=== PATIENT | female | born 1945 | race Asian ===

== ENCOUNTER 2017-02-16 13:33 | Outpatient (CLI) | payer MEDICARE, OTHER | END 2017-02-16 13:34 | disposition home or self-care (01) | DX: Z12.31 Encounter for screening mammogram for malignant neoplasm of breast (principal) ==

== ENCOUNTER 2017-04-04 10:42 | Outpatient (CLI) | payer MEDICARE, OTHER ==
--- NOTE | 2017-04-04 14:18 | XRAY Report ---
THREE VIEW LEFT KNEE: 04/04/2017 CLINICAL INDICATION: Left knee pain. FINDINGS: Standing AP, lateral, and sunrise views of the left knee demonstrate moderate osteoarthrit is. There is no evidence of fracture. No effusion is present. IMPRESSION: MODERATE OSTEOARTHRITIS. JOB #: [id number] EXT JOB #:[id number]
== END 2017-04-04 10:43 | disposition home or self-care (01) ==
LOC: DI 10:42
PROVIDERS: ATTEND Family Medicine
DX: M17.12 Unilateral primary osteoarthritis, left knee (principal)

== ENCOUNTER 2018-03-07 08:41 | Outpatient (CLI) | payer MEDICARE, OTHER ==
--- NOTE | 2018-03-10 12:23 | DEXA Report ---
DEXA SCAN: 03/07/2018 CLINICAL INDICATION: Osteoporosis. TECHNIQUE: Dual energy x-ray absorptiometry (DXA) was performed on a [employer] system. Regions measured are the AP spine, femoral neck, and, if needed, forearm. COMPARISON: None. In accordance with the International Society for Clinical Densitometry (ISCD) guidelines, data from previous exams may be reanalyzed using current recommendations and techniques. This is done to allow a more accurate basis for comparison with the current study. FINDINGS Data for the lumbar spine is as follows: REGION BMD (g/cm/cm) T-SCORE Z-SCORE L1 0.800 -2.7 -1.3 L2 0.847 -2.9 -1.5 L3 1.072 -1.1 0.4 L4 0.959 -2.0 -0.6 L1-L4 0.926 -2.1 -0.7 NOTE: All evaluable vertebrae are used for classification. The data for the hip is as follows: REGION BMD (g/cm/cm) T-SCORE Z-SCORE Neck 0.774 -1.9 -0.3 TOTAL 0.777 -1.8 -0.5 NOTE: The femoral neck or total proximal femur, whichever is lowest, is used for classification. IMPRESSION WHO CLASSIFICATION BASED ON THE INTERNATIONAL REFERENCE STANDARD IS OSTEOPENIA. FRACTURE RISK IS INCREASED. RECOMMENDATION: Patients with diagnosis of osteoporosis or osteopenia should have regular bone mineral density assessment. For those eligible for Medicare, routine testing is allowed once every 2 years. Testing frequency can be increased for patients who have rapidly progressing disease or for those who are receiving medical therapy to restore bone mass. COMMENT World Health Organization (WHO) definitions for osteoporosis and osteopenia: NORMAL BMD: T-score at 1.0 or higher, fracture risk is low. OSTEOPENIA BMD: T-score between 1.0 and -2.5, fracture risk is increased. OSTEOPOROSIS BMD: T-score at 2.5 or lower, fracture risk high. National Osteoporosis Foundation recommends: 1. Obtain adequate dietary calcium (at least 1200 mg per day) and vitamin D (400 -800 international units per day). 2. Participate, as appropriate, in regular weightbearing and muscle- strengthening exercise. 3. Avoid tobacco use and reduce alcohol and caffeine intake. 4. For more detailed information see the website at www.NOF.org. TD: 03/07/2018 13:33 MTDD
== END 2018-03-07 08:42 | disposition home or self-care (01) ==
LOC: DI 08:41
PROVIDERS: ATTEND Internal Medicine
DX: M81.0 Age-related osteoporosis without current pathological fracture (principal); M85.89 Other specified disorders of bone density and structure, multiple sites
CPT/HCPCS: 77080

== ENCOUNTER 2018-03-07 08:43 | Outpatient (CLI) | payer MEDICARE, OTHER ==
--- NOTE | 2018-03-08 15:21 | Mammography Report ---
DIGITAL SCREENING MAMMOGRAM: 03/07/2018 CLINICAL INDICATION: A 72-year-old for screening. COMPARISON: 02/2017, 08/2015, 05/2014, 10/2013, 09/2013, 07/2012, 01/2011, 11/2009. TECHNIQUE: Routine CC and MLO projections were obtained of the breasts. FINDINGS: The breasts demonstrate scattered fibroglandular densities bilaterally. Coarse and punctate, typically benign calcifications are present. No suspicious masses, clustered microcalcifications, or regions of architectural distortion are identified. IMPRESSION: BENIGN FINDINGS. RECOMMENDATION: Routine annual screening unless otherwise clinically indicated. BIRADS CATEGORY 2 benign findings. STANDARD QUALIFYING STATEMENTS: 1. This examination was reviewed with the aid of Computer-Aided Detection (CAD). 2. A negative or benign imaging report should not delay biopsy if clinically suspicious findings are present. Consider surgical consultation if warranted. More than 5% of cancers are not identified by imaging. 3. Dense breasts may obscure an underlying neoplasm. TD: 03/08/2018 13:01
== END 2018-03-07 08:44 | disposition home or self-care (01) ==
LOC: DI 08:43
PROVIDERS: ATTEND Internal Medicine
DX: Z12.31 Encounter for screening mammogram for malignant neoplasm of breast (principal)
CPT/HCPCS: 77067

== ENCOUNTER 2018-05-02 15:44 | Outpatient (CLI) | payer MEDICARE, OTHER ==
--- NOTE | 2018-05-03 16:13 | XRAY Report ---
Procedure Date: 05/02/2018 Accession Number: [id number] / [id number] Procedure: XR - Lumbar Spine 2 View CPT Code: FULL RESULT: EXAM: Lumbar Spine 2 View DATE: 05/02/2018 4:17 PM CLINICAL HISTORY: BACK PAIN COMPARISON: 08/28/2014. TECHNIQUE: 2 views. FINDINGS: Alignment: Normal. No spondylolisthesis or scoliosis. Bones: Five [id number] lumbar vertebral bodies are present. No fractures or bone lesions. Disks: No significant degenerative disc disease on plain radiography. Facets: There has been interval increase in facet arthropathy at L4 and L5 most pronounced at L5. Sacroiliac Joints: Unremarkable. Soft Tissues: Normal. The visualized bowel gas pattern is normal. IMPRESSION: Progression of facet arthropathy of the lower lumbar spine. RADIA
== END 2018-05-02 15:45 | disposition home or self-care (01) ==
LOC: DI 15:44
PROVIDERS: ATTEND Internal Medicine
DX: M54.9 Dorsalgia, unspecified (principal); M12.88 Other specific arthropathies, not elsewhere classified, other specified site
CPT/HCPCS: 72100

== ENCOUNTER 2018-09-14 22:18 | Emergency (ER) | payer MEDICARE, OTHER ==
[2018-09-14 22:46] LABS: BASOPHILS % (AUTO) 0.2 %; HGB - HEMOGLOBIN 15.1 g/dL (12.0-16.0); LYMPHOCYTES % (AUTO) 4.9 %; MEAN CORPUSCULAR HEMOGLOBIN 28.8 pg (27.0-31.0); MEAN CORPUSCULAR HGB CONC 33.6 g/dL (32.0-36.0); MEAN CORPUSCULAR VOLUME 85.9 fL (81.0-99.0); MEAN PLATELET VOLUME 6.2 fL (7.9-10.8); NEUTROPHILS % (AUTO) 88.9 %; PLT - PLATELET COUNT 503 10^3/uL (130-450); RED BLOOD COUNT 5.24 10^6/uL (4.20-5.40); RED CELL DISTRIBUTION WIDTH 12.4 % (12.0-15.0); WHITE BLOOD COUNT 20.8 x10^3/uL (4.8-10.8)
--- NOTE | 2018-09-14 22:49 | ED Physician Documentation ---
PD HPI ABD PAIN - Stated complaint Stated Complaint: ABD PX - Chief complaint Chief Complaint: Abd Pain - History obtained from History obtained from: Patient - History of Present Illness Timing - onset: Yesterday Timing - details: Gradual onset, Waxing and waning Pain level now: 5 Quality: Pain Location: Epigastric Radiation: Other (across upper abdomen) Improved by: Other (nothing) Worsened by: Other (no exacerbating factors) Associated symptoms: Nausea, Vomiting. No: Fever, Diarrhea, Constipation Similar symptoms before: Has not had sx before Recently seen: Not recently seen Review of Systems Constitutional: reports: Reviewed and negative Cardiac: reports: Reviewed and negative Respiratory: reports: Reviewed and negative GI: reports: Abdominal Pain, Nausea, Vomiting. denies: Constipation, Diarrhea : denies: Dysuria, Frequency Musculoskeletal: denies: Back pain PD PAST MEDICAL HISTORY - Past Medical History Past Medical History: Yes Cardiovascular: None, High cholesterol Respiratory: None Endocrine/Autoimmune: None GI: Colon polyps : None Musculoskeletal: None Derm: None - Past Surgical History General: Cholecystectomy, Colonoscopy - Present Medications Home Medications: Ambulatory Orders Medication Instructions Recorded Confirmed Alendronate [Fosamax] 70 mg PO Q7D 09/26/13 09/26/13 Calcium Carbonate/Vitamin D3 1 each PO 09/26/13 09/26/13 [Calcium + Vitamin D Tablet] Cholecalciferol (Vitamin D3) 2,000 unit PO 09/26/13 09/26/13 [Vitamin D] Multivitamin [Multi-Day Vitamins] 1 each PO 09/26/13 09/26/13 Simvastatin 20 mg PO 09/26/13 09/26/13 Esomeprazole Magnesium [Nexium] 20 mg PO DAILY #14 capsule. 09/15/18 oxyCODONE [Roxicodone] 5 mg PO Q6H PRN #10 tablet 09/15/18 - Allergies Allergies/Adverse Reactions: Allergies Allergy/AdvReac Type Severity Reaction Status Date / Time No Known Drug Allergies Allergy Verified 09/14/18 22:50 - Social History Does the pt smoke?: No Smoking Status: Never smoker Does the pt drink ETOH?: No Does the pt have substance abuse?: No - Immunizations Immunizations are current?: Yes PD ED PE NORMAL - Vitals Vital signs reviewed: Yes - General General: Alert and oriented X 3, No acute distress, Well developed/nourished - HEENT HEENT: Moist mucous membranes - Cardiac Cardiac: RRR, No murmur - Respiratory Respiratory: No respiratory distress, Clear bilaterally - Abdomen Abdomen: Normal bowel sounds, Soft, Non distended, Other (mild tenderness epigastrium without rebound or guarding) - Back Back: No CVA TTP - Derm Derm: Normal color, Warm and dry Results - Vitals Vitals: Vital Signs - 24 hr 09/14/18 09/14/18 09/15/18 22:26 23:38 00:50 Temperature 35.9 C L Heart Rate 90 78 51 L Respiratory 17 16 16 Rate Blood Pressure 136/88 H 148/98 H 141/92 H O2 Saturation 98 94 97 09/15/18 01:22 Temperature 36.6 C Heart Rate 79 Respiratory 14 Rate Blood Pressure 121/100 H O2 Saturation 98 Oxygen O2 Source Room air - Labs Labs: Microbiology 09/14/18 22:31 Urine Culture - Preliminary Urine,Clean Catch Laboratory Tests 09/14/18 09/14/18 09/14/18 22:31 22:37 22:37 WBC 20.8 H RBC 5.24 Hgb 15.1 Hct 45.0 MCV 85.9 MCH 28.8 MCHC 33.6 RDW 12.4 Plt Count 503 H MPV 6.2 L Neut # (Auto) Not Reportable Lymph # (Auto) Not Reportable [place] # (Auto) Not Reportable Eos # (Auto) Not Reportable Baso # (Auto) Not Reportable Absolute Nucleated RBC Not Reportable Total Counted 100 Band Neuts % (Manual) 1 Reactive Lymphs % (Man) 1 Abnorm Lymph % (Manual) 0 Nucleated RBC % Not Reportable Neutrophils # (Manual) 17.7 H Lymphocytes # (Manual) 2.1 Monocytes # (Manual) 1.0 Eosinophils # (Manual) 0.0 Basophils # (Manual) 0.0 Differential Comment MANUAL DIFFERENTIAL Platelet Estimate NORMAL (130-450,000) Platelet Morphology NORMAL APPEARANCE RBC Morph Micro Appear NORMAL APPEARANCE Sodium 133 L Potassium 3.5 Chloride 98 L Carbon Dioxide 25 Anion Gap 10.0 BUN 14 Creatinine 0.8 Estimated GFR (MDRD) 71 L Glucose 168 H Calcium 9.1 Total Bilirubin 1.0 AST 372 H ALT 311 H Alkaline Phosphatase 150 H Total Protein 8.0 Albumin 4.0 Globulin 4.0 Albumin/Globulin Ratio 1.0 Lipase 58 H Urine Color YELLOW Urine Clarity TURBID Urine pH 5.5 Ur Specific [place] >=1.030 H Urine Protein 30 H Urine Glucose (UA) 100 H Urine Ketones TRACE Urine Occult Blood TRACE-INTA Urine Nitrite POSITIVE H Urine Bilirubin NEGATIVE Urine Urobilinogen 1 (NORMAL) Ur Leukocyte Esterase NEGATIVE Urine RBC None Seen Urine WBC 0-3 Ur Squamous Epith Cells NONE SEEN Amorphous Sediment Marked Urine Bacteria Moderate H Ur Microscopic Review INDICATED Urine Culture Comments INDICATED - Rads (name of study) CT A/P Radiology: Prelim report reviewed, See rad report PD MEDICAL DECISION MAKING - ED course Complexity details: reviewed results, re-evaluated patient, considered differential, d/w patient ED course: On reevaluation, patient is in NAD and reports resolution of symptoms. In addition to significant leukocytosis, there are several abnormalities on CT and blood tests; despite this, patient is in NAD on reevaluation and reports resolution of symptoms. Admission to hospital not indicated at this time, but I emphasized to patient that she needs to have a low threshold for return to ED, and the importance of follow-up as soon as possible Departure - Departure Disposition: 01 Home, Self Care Clinical Impression: Abdominal pain Qualifiers: Abdominal location: epigastric Qualified Code(s): R10.13 - Epigastric pain Condition: Good Instructions: ED Abdominal Pain Unkn Cause Follow-Up: Carol Holcomb MD [Primary Care Provider] - (Call to arrange for next available appointment) Prescriptions: Esomeprazole Magnesium [Nexium] 20 mg PO DAILY #14 capsule. oxyCODONE [Roxicodone] 5 mg PO Q6H PRN #10 tablet PRN Reason: Pain Comments: There are several abnormalities on tonight's tests, including elevations in your liver tests (enzymes), white blood cell count, and pancreatic blood test. At this time, you do not require admission to the hospital and have indicated that the symptoms are resolved. Please return to the emergency department if worse in any way, and follow up with your primary care physician as soon as can be arranged. Do not take any tylenol (acetaminophen) and be careful not to take any products (such as cough/cold products) that contain acetaminophen. If you have pain, you can take the prescribed pain medication. Discharge Date/Time: 09/15/18 01:22
[2018-09-14 22:50] LABS: ABNORMAL LYMPHS % (MANUAL) 0 %
[2018-09-14 23:02] LABS: GLUCOSE, URINE (UA) 100 mg/dL (NEGATIVE); KETONES,URINE (UA) TRACE mg/dL (NEGATIVE); LEUKOCYTE ESTERASE, URINE NEGATIVE (NEGATIVE); NITRITE,URINE POSITIVE (NEGATIVE); OCCULT BLOOD,URINE TRACE-INTA (NEGATIVE); PH,URINE 5.5 PH (5.0-7.5); PROTEIN,URINE 30 mg/dL (NEGATIVE); UROBILINOGEN,URINE 1 (NORMAL) E.U./dL (NORMAL)
[2018-09-14 23:04] LABS: BILIRUBIN,URINE NEGATIVE (NEGATIVE); CLARITY,URINE TURBID (CLEAR); ICTOTEST,URINE NEGATIVE
[2018-09-14 23:05] LABS: AMORPHOUS SEDIMENT,UR Marked /LPF; BACTERIA,URINE Moderate /HPF (None Seen); RBC,URINE None Seen /HPF (0-5); SQUAMOUS EPITHELIAL CELL,UR NONE SEEN (<= Few)
[2018-09-14] MEDS ORDERED: SODIUM CHLORIDE 0.9% 500 ML IV STA (23:05)
[2018-09-14] MEDS ORDERED: KETOROLAC 60 MG/2 ML VIAL IVP STA (23:05)
[2018-09-14 23:06] LABS: CALCIUM 9.1 mg/dL (8.5-10.3); CREATININE 0.8 mg/dL (0.4-1.0)
[2018-09-14 23:13] LABS: BAND NEUTROPHILS % (MANUAL) 1 %; LYMPHOCYTES # (MANUAL) 2.1 10^3/uL (1.5-3.5); LYMPHOCYTES % (MANUAL) 9 %; NEUTROPHILS # (MANUAL) 17.7 10^3/uL (1.5-6.6); NEUTROPHILS % (MANUAL) 84 %
[2018-09-14 23:15] LABS: DIFFERENTIAL COMMENT MANUAL DIFFERENTIAL; PLATELET ESTIMATE, MANUAL NORMAL (130-450,000) (NORMAL); PLATELET MORPHOLOGY NORMAL APPEARANCE (NORMAL); RBC MORPHOLOGY (MULTIPLE) NORMAL APPEARANCE (NORMAL)
[2018-09-14] MEDS ORDERED: IOVERSOL 320 100 ML VIAL IVP ONE ×2 (23:37→23:49)
--- NOTE | 2018-09-15 00:12 | CT Report ---
Reason: upper abdominal pain Procedure Date: 09/14/2018 Accession Number: [id number] / [id number] Procedure: CT - Abdomen/Pelvis W/ CPT Code: FULL RESULT: EXAM: CT ABDOMEN AND PELVIS EXAM DATE: 09/14/2018 11:55 PM. CLINICAL HISTORY: Upper abdominal pain. COMPARISONS: None. TECHNIQUE: Routine helical CT imaging was performed through the abdomen and pelvis. IV contrast: OPTIRAY 320 100mL. Enteric contrast: No. Reconstructions: Coronal and sagittal. In accordance with CT protocol optimization, one or more of the following dose reduction techniques were utilized for this exam: automated exposure control, adjustment of mA and/or KV based on patient size, or use of iterative reconstructive technique. FINDINGS: Lung Bases: Minimal right middle lobe and lingular chronic atelectasis or scarring. Liver: Normal. No masses. Gallbladder/Bile Ducts: Status post cholecystectomy. Mild intra-and extrahepatic bile dilatation. Tapering at the distal common bile duct. Spleen: Normal. Pancreas: Edematous heterogeneous appearing head of the pancreas with mild adjacent stranding. Acute pancreatitis could be present. Pancreatic head mass not excluded and follow-up recommended. Thickened edematous proximal duodenal wall, could be related to acute pancreatitis versus acute duodenitis. Adrenal Glands: Normal. Kidneys: Normal. No masses or hydronephrosis. Peritoneal Cavity/Bowel: See above. The appendix appears normal. Mild sigmoid diverticulosis. No free fluid or free air. Pelvic Organs: Normal. The bladder and visualized pelvic organs are within normal limits. Vasculature: No acute findings. Bones: No acute bone findings. IMPRESSION: 1. Mild intra-and extrahepatic bile dilatation. Tapering at the distal common bile duct. MRCP could further evaluate as clinically indicated. 2. Edematous heterogeneous appearing head of the pancreas with mild adjacent stranding. Acute pancreatitis could be present. Pancreatic head mass not excluded and follow-up recommended. Thickened edematous proximal duodenal wall, could be related to acute pancreatitis versus acute duodenitis. 3. Mild sigmoid diverticulosis. 4. The appendix appears normal. RADIA
[2018-09-15 01:22] VITALS: BP 121/100
== END 2018-09-15 01:22 | disposition home or self-care (01) ==
LOC: ED 22:18
DX: R10.13 Epigastric pain (principal); R74.8 Abnormal levels of other serum enzymes; D72.829 Elevated white blood cell count, unspecified; R94.8 Abnormal results of function studies of other organs and systems; E78.00 Pure hypercholesterolemia, unspecified
CPT/HCPCS: 36415; 74177; 80053; 81001; 83690; 85025; 87086; 96374; 99283; Q9967; 81003

== ENCOUNTER 2019-03-31 16:53 | Emergency (ER) | payer MEDICARE, OTHER ==
[2019-03-31 17:25] LABS: BASOPHILS % (AUTO) 0.3 %; EOSINOPHILS % (AUTO) 0.1 %; HGB - HEMOGLOBIN 14.8 g/dL (12.0-16.0); MEAN CORPUSCULAR HGB CONC 32.7 g/dL (32.0-36.0); MEAN CORPUSCULAR VOLUME 88.6 fL (81.0-99.0); MEAN PLATELET VOLUME 8.6 fL (7.9-10.8); MONOCYTES # (AUTO) 0.6 10^3/uL (0.0-1.0); MONOCYTES % (AUTO) 5.7 %; NEUTROPHILS # (AUTO) 9.2 10^3/uL (1.5-6.6); NEUTROPHILS % (AUTO) 84.6 %; PLT - PLATELET COUNT 343 10^3/uL (130-450); RED BLOOD COUNT 5.11 10^6/uL (4.20-5.40); RED CELL DISTRIBUTION WIDTH 13.3 % (12.0-15.0); WHITE BLOOD COUNT 10.9 x10^3/uL (4.8-10.8)
[2019-03-31 17:38] LABS: ALBUMIN 4.2 g/dL (3.2-5.5); ALBUMIN/GLOBULIN RATIO 1.2 (1.0-2.2); CALCIUM 10.2 mg/dL (8.5-10.3); CREATININE 0.9 mg/dL (0.4-1.0); TOTAL PROTEIN 7.6 g/dL (6.7-8.2)
[2019-03-31 17:40] LABS: INR 1.2 (0.8-1.2); PT - PROTHROMBIN TIME 13.6 secs (9.9-12.6)
[2019-03-31 17:47] LABS: PARTIAL THROMBOPLASTIN TIME 35.3 secs (24.9-33.3)
[2019-03-31 17:58] LABS: BILIRUBIN,URINE NEGATIVE (NEGATIVE); GLUCOSE, URINE (UA) NEGATIVE (NEGATIVE); KETONES,URINE (UA) NEGATIVE (NEGATIVE); LEUKOCYTE ESTERASE, URINE NEGATIVE (NEGATIVE); NITRITE,URINE NEGATIVE (NEGATIVE); OCCULT BLOOD,URINE NEGATIVE (NEGATIVE); PH,URINE 5.5 PH (5.0-7.5); PROTEIN,URINE NEGATIVE (NEGATIVE); UROBILINOGEN,URINE 0.2 (NORMAL) E.U./dL (NORMAL)
[2019-03-31 18:01] LABS: CLARITY,URINE CLEAR (CLEAR)
--- NOTE | 2019-03-31 18:04 | ED Physician Documentation ---
PD HPI GI BLEED - Stated complaint Stated Complaint: AB PX/BLOODY STOOL - Chief complaint Chief Complaint: Abd Pain - History obtained from History obtained from: Patient - History of Present Illness Timing - onset: Today Timing - duration: Hours (3) Timing - details: Abrupt onset Pain level max: 5 Pain level now: 0 Associated symptoms: Other (had firm stool and abdominal cramping. States the tail end of the stool was dark and tarry. States she strained and there was a small amount of BRBPR.) Contributing factors: Anticoagulated (xarelto). No: Sick contact, Bad food, Travel, Recent antibiotics, Alcohol use, Aspirin use, NSAID use, Stress, Diabet es Improved by: Other (nothing) Worsened by: Other (nothing) Similar symptoms before: Other (normal colonoscopy 6 years ago after similar symptoms.) Recently seen: Not recently seen Review of Systems Ten Systems: 10 systems reviewed and negative Constitutional: denies: Fever, Chills Nose: denies: Rhinorrhea / runny nose, Congestion Throat: denies: Sore throat Cardiac: denies: Chest pain / pressure Respiratory: denies: Cough GI: reports: Abdominal Pain (cramping before bowel movement. none now). 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 : None HEENT: None Psych: None Musculoskeletal: None Derm: None - Past Surgical History Past Surgical History: Yes General: Cholecystectomy, Colonoscopy - Present Medications Home Medications: Ambulatory Orders Medication Instructions Recorded Confirmed Alendronate [Fosamax] 70 mg PO Q7D 09/26/13 03/31/19 Calcium Carbonate/Vitamin D3 1 each PO DAILY 09/26/13 03/31/19 [Calcium + Vitamin D Tablet] Cholecalciferol (Vitamin D3) 2,000 unit PO DAILY 09/26/13 03/31/19 [Vitamin D] Multivitamin [Multi-Day Vitamins] 1 each PO DAILY 09/26/13 03/31/19 Simvastatin 20 mg PO DAILY 09/26/13 03/31/19 Lisinopril 5 mg PO DAILY 03/31/19 03/31/19 Rivaroxaban [Xarelto] 20 mg PO DAILY 03/31/19 03/31/19 Turmeric/Turmeric Root Extract 500 mg PO DAILY 03/31/19 03/31/19 [Turmeric 500 mg Capsule] - Allergies Allergies/Adverse Reactions: Allergies Allergy/AdvReac Type Severity Reaction Status Date / Time No Known Drug Allergies Allergy Verified 03/31/19 17:03 - Social History Does the pt smoke?: No Smoking Status: Never smoker Does the pt drink ETOH?: No Does the pt have substance abuse?: No - Immunizations Immunizations are current?: Yes - POLST Patient has POLST: No PD ED PE NORMAL - Vitals Vital signs reviewed: Yes - General General: Alert and oriented X 3, No acute distress, Well developed/nourished - HEENT HEENT: PERRL, Moist mucous membranes - Neck Neck: Supple, no meningeal sign - Cardiac Cardiac: RRR, Strong equal pulses - Respiratory Respiratory: No respiratory distress, Clear bilaterally - Abdomen Abdomen: Soft, Non tender, Non distended - Rectal Rectal: Other (hemoccult negative. QC passed.) - Back Back: No CVA TTP, No spinal TTP - Derm Derm: Warm and dry - Extremities Extremities: No deformity - Neuro Neuro: Alert and oriented X 3 - Psych Psych: Normal mood, Normal affect Results - Vitals Vitals: Vital Signs - 24 hr 03/31/19 03/31/19 17:00 19:20 Temperature 36.6 C Heart Rate 91 74 Respiratory 18 18 Rate Blood Pressure 144/85 H 159/94 H O2 Saturation 97 98 Oxygen O2 Source Room air - Labs Labs: Laboratory Tests 03/31/19 03/31/19 03/31/19 17:10 17:10 17:10 WBC 10.9 H RBC 5.11 Hgb 14.8 Hct 45.3 MCV 88.6 MCH 29.0 MCHC 32.7 RDW 13.3 Plt Count 343 MPV 8.6 Neut # (Auto) 9.2 H Lymph # (Auto) 1.0 L [place] # (Auto) 0.6 Eos # (Auto) 0.0 Baso # (Auto) 0.0 Absolute Nucleated RBC 0.00 Nucleated RBC % 0.0 PT 13.6 H INR 1.2 APTT 35.3 H Sodium Potassium Chloride Carbon Dioxide Anion Gap BUN Creatinine Estimated GFR (MDRD) Glucose Calcium Total Bilirubin AST ALT Alkaline Phosphatase Total Protein Albumin Globulin Albumin/Globulin Ratio Lipase Urine Color Urine Clarity Urine pH Ur Specific [place] Urine Protein Urine Glucose (UA) Urine Ketones Urine Occult Blood Urine Nitrite Urine Bilirubin Urine Urobilinogen Ur Leukocyte Esterase Ur Microscopic Review Urine Culture Comments Blood Type A POSITIVE Blood Type Recheck Antibody Screen NEGATIVE 03/31/19 03/31/19 03/31/19 17:10 17:49 18:25 WBC RBC Hgb Hct MCV MCH MCHC RDW Plt Count MPV Neut # (Auto) Lymph # (Auto) [place] # (Auto) Eos # (Auto) Baso # (Auto) Absolute Nucleated RBC Nucleated RBC % PT INR APTT Sodium 141 Potassium 4.0 Chloride 107 Carbon Dioxide 22 Anion Gap 12.0 BUN 21 H Creatinine 0.9 Estimated GFR (MDRD) 62 L Glucose 132 H Calcium 10.2 Total Bilirubin 1.0 AST 20 ALT 14 Alkaline Phosphatase 52 Total Protein 7.6 Albumin 4.2 Globulin 3.4 Albumin/Globulin Ratio 1.2 Lipase 34 Urine Color YELLOW Urine Clarity CLEAR Urine pH 5.5 Ur Specific [place] 1.025 Urine Protein NEGATIVE Urine Glucose (UA) NEGATIVE Urine Ketones NEGATIVE Urine Occult Blood NEGATIVE Urine Nitrite NEGATIVE Urine Bilirubin NEGATIVE Urine Urobilinogen 0.2 (NORMAL) Ur Leukocyte Esterase NEGATIVE Ur Microscopic Review NOT INDICATED Urine Culture Comments NOT INDICATED Blood Type Blood Type Recheck A POSITIVE Antibody Screen 03/31/19 19:21 WBC RBC Hgb 14.3 Hct 44.5 MCV MCH MCHC RDW Plt Count MPV Neut # (Auto) Lymph # (Auto) [place] # (Auto) Eos # (Auto) Baso # (Auto) Absolute Nucleated RBC Nucleated RBC % PT INR APTT Sodium Potassium Chloride Carbon Dioxide Anion Gap BUN Creatinine Estimated GFR (MDRD) Glucose Calcium Total Bilirubin AST ALT Alkaline Phosphatase Total Protein Albumin Globulin Albumin/Globulin Ratio Lipase Urine Color Urine Clarity Urine pH Ur Specific [place] Urine Protein Urine Glucose (UA) Urine Ketones Urine Occult Blood Urine Nitrite Urine Bilirubin Urine Urobilinogen Ur Leukocyte Esterase Ur Microscopic Review Urine Culture Comments Blood Type Blood Type Recheck Antibody Screen PD MEDICAL DECISION MAKING - ED course Complexity details: reviewed results, re-evaluated patient, considered differential, d/w patient, d/w family ED course: No further rectal bleeding in the emergency department. Normal rectal exam. 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 Vitals are normal. Hemoglobin on the upper limit of normal. No significant change on redraw. No abdominal pain. Patient would like to go home at this time. She does not want to stay in the hospital. I think this is reasonable. Patient and will return if she worsens in any way. Patient and family counseled regarding signs and symptoms for which I believe and urgent re-evaluation would be necessary. Patient with good understanding of and agreement to plan and is comfortable going home at this time This document was made in part using voice recognition software. While efforts are made to proofread this document, sound alike and grammatical errors may occur. Departure - Departure Disposition: 01 Home, Self Care Clinical Impression: Lower GI bleed Condition: Good Health Concerns: GI bleed Plan of Treatment: Supportive care Care Goals: Improved patient Assessment: Improved Instructions: ED Hematochezia Stable Follow-Up: Carol Holcomb MD [Primary Care Provider] - Within 3 Days Comments: The cause of your symptoms is unclear tonight. Return if you have recurrent bleeding. Return if you worsen. Your blood counts are normal today. Return for any other new or worsening symptoms. Discharge Date/Time: 03/31/19 19:48
[2019-03-31 19:21] VITALS: BP 159/94
[2019-03-31 19:24] LABS: HGB - HEMOGLOBIN 14.3 g/dL (12.0-16.0)
== END 2019-03-31 19:48 | disposition home or self-care (01) ==
LOC: ED 16:53
DX: K92.1 Melena (principal); I10 Essential (primary) hypertension; I48.91 Unspecified atrial fibrillation; Z79.01 Long term (current) use of anticoagulants
CPT/HCPCS: 36415; 80053; 81001; 81003; 83690; 85014; 85018; 85025; 85610; 85730; 86850; 86900; 86901; 87086; 99283

== ENCOUNTER 2019-05-20 16:22 | Outpatient (CLI) | payer MEDICARE, OTHER ==
--- NOTE | 2019-05-21 08:27 | Mammography Report ---
Reason: SCREENING MAMMO Procedure Date: 05/20/2019 Accession Number: [id number] / [id number] Procedure: JEANNETTE - Screening Mammo w/Sesar CPT Code: FULL RESULT: EXAM: Screening Mammo w/Sesar DATE: 05/20/2019 4:49 PM CLINICAL HISTORY: Screening encounter. History of early menses. Family history of breast cancer in a sister at the age of 67. TECHNIQUE: (B) - Bilateral CC and MLO views were obtained. COMPARISON: 03/07/2018 through 06/04/2014. PARENCHYMAL PATTERN: (A) - The breast(s) demonstrate(s) scattered fibroglandular densities. FINDINGS: There are no suspicious masses, calcifications, or areas of distortion. IMPRESSION: Negative examination. BI-RADS category 1. RECOMMENDATION: (ANNUAL) - Recommend routine annual screening mammography. BI-RADS CATEGORY: (1) - Negative. STANDARD QUALIFYING STATEMENTS: 1. This examination was not reviewed with the aid of Computer-Aided Detection (CAD). 2. A negative or benign imaging report should not preclude biopsy if clinically suspicious findings are present. 3. Dense breasts may obscure an underlying neoplasm. 4. This examination was reviewed with the aid of 3D breast imaging (tomosynthesis).
== END 2019-05-20 16:23 | disposition home or self-care (01) ==
LOC: DI 16:22
DX: Z12.31 Encounter for screening mammogram for malignant neoplasm of breast (principal); Z80.3 Family history of malignant neoplasm of breast
CPT/HCPCS: 77063; 77067

== ENCOUNTER 2020-04-26 13:41 | Outpatient (CLI) | payer MEDICARE, OTHER ==
--- NOTE | 2020-04-27 07:48 | Mammography Report ---
BILATERAL DIGITAL SCREENING MAMMOGRAM 3D/2D: 04/26/2020 CLINICAL: Routine screening. Comparison is made to exams dated: 05/20/2019 mammogram, 03/07/2018 mammogram, and 02/16/2017 mammogram - [facility]. There are scattered fibroglandular elements in both breasts. No significant masses, calcifications, or other findings are seen in either breast. There has been no significant interval change. IMPRESSION: NEGATIVE There is no mammographic evidence of malignancy. A 1 year screening mammogram is recommended. This exam was interpreted at Station ID: [id number]. NOTE: For mammograms, a report in lay terms will be sent to the patient. Approximately 15% of breast malignancies will not be visualized mammographically. In the management of a palpable breast mass, a negative mammogram must not discourage biopsy of a clinically suspicious lesion. Electronically Signed By: Tracy resendiz/penrad:04/26/2020 16:58:42 ACR BI-RADS Category 1: Negative 3341F PARENCHYMAL PATTERN: (A) - The breast(s) demonstrate(s) scattered fibroglandular densities. BI-RADS CATEGORY: (1) - 1 RECOMMENDATION: (ANNUAL) - Recommend routine annual screening mammography. [id number] 1 year screening LATERALITY: (B)
== END 2020-04-26 13:42 | disposition home or self-care (01) ==
LOC: DI 13:41
PROVIDERS: ATTEND Internal Medicine
DX: Z12.31 Encounter for screening mammogram for malignant neoplasm of breast (principal)
CPT/HCPCS: 77063; 77067

== ENCOUNTER 2020-04-26 13:43 | Outpatient (CLI) | payer MEDICARE, OTHER ==
--- NOTE | 2020-04-26 15:26 | DEXA Report ---
Reason: DISORDER OF BONE Procedure Date: 04/26/2020 Accession Number: [id number] / [id number] Procedure: DEX - Dexa Spine and/or Hip CPT Code: Final Report FULL RESULT: PROCEDURE: Dexa Spine and/or Hip INDICATIONS: DISORDER OF BONE TECHNIQUE: Dual energy x-ray absorptiometry (DXA) was performed on a [employer] System. Regions measured are the AP Spine, femoral neck, and if needed forearm. COMPARISON: Dexa 03/07/2018. FINDINGS: Lumbar Spine: Bone Mineral Density 1.050 g/cm/cm,T score -1.1 Left Hip: Bone Mineral Density 0.797 g/cm/cm,T score -1.7 Left Femoral Neck: Bone Mineral Density 0.775 g/cm/cm, T score -1.9 (T score greater or equal to -1.0: NORMAL) (T score from -1.1 to -2.4: OSTEOPENIA) (T score less than or equal to -2.5 to: OSTEOPOROSIS) Impression: Based on WHO criteria, the patient is osteopenic. Compared with the last exam on 03/07/2018, the mineral density of lumbar spine has significantly improved. The mineral density of the left hip is unchanged. Patients with diagnosis of osteoporosis or osteopenia should have regular bone mineral density assessment. For those eligible for Medicare, routine testing is allowed once every 2 years. Testing frequency can be increased for patients who have rapidly progressing disease or for those who are receiving medical therapy to restore bone mass. Reviewed by: Poonam Lind MD on 04/26/2020 3:25 PM PDT Approved by: Poonam Lind MD on 04/26/2020 3:25 PM PDT Station ID: [id number]
== END 2020-04-26 13:44 | disposition home or self-care (01) ==
LOC: DI 13:43
PROVIDERS: ATTEND Internal Medicine
DX: M85.89 Other specified disorders of bone density and structure, multiple sites (principal)
CPT/HCPCS: 77080

== ENCOUNTER 2021-06-23 09:05 | Outpatient (CLI) | payer MEDICARE, OTHER ==
--- NOTE | 2021-06-27 09:38 | Mammography Report ---
BILATERAL DIGITAL SCREENING MAMMOGRAM 3D/2D: 06/23/2021 CLINICAL: Routine screening. Comparison is made to exams dated: 04/26/2020 mammogram, 05/20/2019 mammogram, 03/07/2018 mammogram, 09/2017 mammogram, 08/27/2015 mammogram, and 06/04/2014 ultrasound - [facility]. Th ere are scattered fibroglandular elements in both breasts. No significant masses, calcifications, or other findings are seen in either breast. There has been no significant interval change. IMPRESSION: NEGATIVE There is no mammographic evidence of malignancy. A 1 year screening mammogram is recommended. This exam was interpreted at Station ID: [id number]. NOTE: For mammograms, a report in lay terms will be sent to the patient. Approximately 15% of breast malignancies will not be visualized mammographically. In the management of a palpable breast mass, a negative mammogram must not discourage biopsy of a clinically suspicious lesion. Electronically Signed By: Francisco duque/sonu:06/23/2021 10:42:06 ACR BI-RADS Category 1: Negative 3341F PARENCHYMAL PATTERN: (A) - The breast(s) demonstrate(s) scattered fibroglandular densities. BI-RADS CATEGORY: (1) - 1 RECOMMENDATION: (ANNUAL) - Recommend routine annual screening mammography. [id number] 1 year screening LATERALITY: (B)
== END 2021-06-23 09:06 | disposition home or self-care (01) ==
LOC: DI 09:05
PROVIDERS: ATTEND Internal Medicine
DX: Z12.31 Encounter for screening mammogram for malignant neoplasm of breast (principal)

== ENCOUNTER 2021-10-26 09:20 | Outpatient (CLI) | payer MEDICARE, OTHER ==
[2021-10-26 09:58] LABS: BASOPHILS % (AUTO) 0.5 %; EOSINOPHILS # (AUTO) 0.1 10^3/uL (0.0-0.7); EOSINOPHILS % (AUTO) 1.6 %; HCT - HEMATOCRIT 45.7 % (37.0-47.0); HGB - HEMOGLOBIN 15.3 g/dL (12.0-16.0); LYMPHOCYTES # (AUTO) 2.1 10^3/uL (1.5-3.5); LYMPHOCYTES % (AUTO) 36.9 %; MEAN CORPUSCULAR HEMOGLOBIN 29.8 pg (27.0-31.0); MEAN CORPUSCULAR HGB CONC 33.5 g/dL (32.0-36.0); MEAN CORPUSCULAR VOLUME 88.9 fL (81.0-99.0); MEAN PLATELET VOLUME 8.4 fL (7.9-10.8); MONOCYTES # (AUTO) 0.7 10^3/uL (0.0-1.0); MONOCYTES % (AUTO) 11.6 %; NEUTROPHILS # (AUTO) 2.8 10^3/uL (1.5-6.6); NEUTROPHILS % (AUTO) 49.1 %; PLT - PLATELET COUNT 334 10^3/uL (130-450); RED BLOOD COUNT 5.14 10^6/uL (4.20-5.40); RED CELL DISTRIBUTION WIDTH 12.6 % (12.0-15.0); WHITE BLOOD COUNT 5.8 x10^3/uL (4.8-10.8)
[2021-10-26 10:18] LABS: ALBUMIN 3.9 g/dL (3.2-5.5); ALBUMIN/GLOBULIN RATIO 1.2 (1.0-2.2); ALKALINE PHOSPHATASE 53 IU/L (42-121); ALT ALANINE AMINOTRANSFERASE 17 IU/L (10-60); AST ASPARTATE AMINOTRANSFERASE 20 IU/L (10-42); BILIRUBIN,TOTAL 1.1 mg/dL (0.2-1.0); BUN - BLOOD UREA NITROGEN 22 mg/dL (6-20); CALCIUM 9.2 mg/dL (8.5-10.3); CARBON DIOXIDE - CO2 25 mmol/L (21-32); CHLORIDE 105 mmol/L (101-111); CHOL/HDL RATIO 4.1 (<4.4); CHOLESTEROL 189 mg/dL; CREATININE 0.8 mg/dL (0.4-1.0); GFR - MDRD 70 (>89); GLUCOSE 113 mg/dL (70-100); HDL CHOLESTEROL 46 mg/dL; LDL CHOLESTEROL,CALCULATED 112 mg/dL; LDL/HDL RATIO 2.4 (<4.4); POTASSIUM 4.2 mmol/L (3.5-5.0); SODIUM 138 mmol/L (135-145); TOTAL PROTEIN 7.2 g/dL (6.7-8.2); TRIGLYCERIDES 153 mg/dL; VLDL CHOLESTEROL 31 mg/dL
== END 2021-10-26 09:21 | disposition home or self-care (01) ==
LOC: LAB 09:20
PROVIDERS: ATTEND Internal Medicine
DX: E78.00 Pure hypercholesterolemia, unspecified (principal); E56.9 Vitamin deficiency, unspecified; I10 Essential (primary) hypertension; E78.2 Mixed hyperlipidemia; Z79.899 Other long term (current) drug therapy
CPT/HCPCS: 36415; 80053; 80061; 83721; 84443; 85025

== ENCOUNTER 2022-08-18 09:40 | Outpatient (CLI) | payer MEDICARE, OTHER ==
--- NOTE | 2022-08-18 12:25 | DEXA Report ---
PROCEDURE: Dexa Spine and/or Hip INDICATIONS: POST MENOPAUSAL TECHNIQUE: Dual energy x-ray absorptiometry (DXA) was performed on a [employer] System. Regions measur ed are the AP Spine, femoral neck, and if needed forearm. COMPARISON: None. FINDINGS: Lumbar Spine: Bone Mineral Density 1.03 g/cm/cm,T score -1.2, Left Hip: Bone Mineral Density 0.82 g/cm/cm,T score -1.5, Left Femoral Neck: Bone Mineral Density 0.76 g/cm/cm, T score -2.0, (T score greater or equal to -1.0: NORMAL) (T score from -1.1 to -2.4: OSTEOPENIA) (T score less than or equal to -2.5 to: OSTEOPOROSIS) Impression: Imaging findings consistent with osteopenia involving the lumbar spine and left hip. Patients with diagnosis of osteoporosis or osteopenia should have regular bone mineral density assess ment. For those eligible for Medicare, routine testing is allowed once every 2 years. Testing frequ ency can be increased for patients who have rapidly progressing disease or for those who are receivin g medical therapy to restore bone mass. Reviewed by: Kang Klein MD on 08/18/2022 12:24 PM PST Approved by: Kang Klein MD on 08/18/2022 12:24 PM PST Station ID: [id number]
== END 2022-08-18 09:41 | disposition home or self-care (01) ==
LOC: DI 09:40
PROVIDERS: ATTEND Internal Medicine
DX: M85.89 Other specified disorders of bone density and structure, multiple sites (principal); N95.9 Unspecified menopausal and perimenopausal disorder

== ENCOUNTER 2022-08-18 10:00 | Outpatient (CLI) | payer MEDICARE, OTHER ==
--- NOTE | 2022-08-21 10:06 | Mammography Report ---
BILATERAL DIGITAL SCREENING MAMMOGRAM 3D/2D: 08/18/2022 CLINICAL: Routine screening. Comparison is made to exams dated: 06/23/2021 mammogram, 04/26/2020 mammogram, 05/20/2019 mammogram, mammogram, 02/16/2017 mammogram, and 08/27/2015 mammogram - [facility]. There are scattered areas of fibroglandular density in both breasts (category b / 25%-50% glandular t issue). No significant masses, calcifications, or other findings are seen in either breast. There has been no significant interval change. IMPRESSION: NEGATIVE There is no mammographic evidence of malignancy. A 1 year screening mammogram is recommended. Based on the Tyrer Cuzick model (a risk assessment model) the patients lifetime risk is 7.8% and her 10 year risk is 7.8%. According to the ACR, ACS, and NCCN guidelines, an annual breast MRI exam pedro g with mammogram is recommended if the patients lifetime risk is 20% or greater. This exam was interpreted at Station ID: [id number]. NOTE: For mammograms, a report in lay terms will be sent to the patient. Approximately 15% of breast malignancies will not be visualized mammographically. In the management of a palpable breast mass, a negative mammogram must not discourage biopsy of a clinically suspicious lesion. Electronically Signed By: Abdullahi Sethi M.D., jr/sonu:08/18/2022 16:16:10 ACR BI-RADS Category 1: Negative 3341F PARENCHYMAL PATTERN: (A) - The breast(s) demonstrate(s) scattered fibroglandular densities. BI-RADS CATEGORY: (1) - 1 RECOMMENDATION: (ANNUAL) - Recommend routine annual screening mammography. [id number] 1 year screening LATERALITY: (B)
== END 2022-08-18 23:59 | disposition home or self-care (01) ==
LOC: DI 10:00
PROVIDERS: ATTEND Internal Medicine
DX: Z12.31 Encounter for screening mammogram for malignant neoplasm of breast (principal)

== ENCOUNTER 2023-09-19 12:51 | Outpatient (CLI) | payer MEDICARE, OTHER ==
--- NOTE | 2023-09-19 17:20 | XRAY Report ---
PROCEDURE: Knee 3 View RT INDICATIONS: RIGHT KNEE PAIN TECHNIQUE: 3 views of the knee(s) were acquired. COMPARISON: Contralateral left knee radiographs 03/27/2017. FINDINGS: Bones: No acute fracture identified. Loose body at the intracondylar notch. No dislocations. No kristi picious bony lesions. Soft tissues: Small knee joint effusion. No suspicious soft tissue calcifications or masses. IMPRESSION: Intracondylar notch loose body. This could be the sequelae of prior fracture or osteochondral defect. Consider further evaluation with MRI. Reviewed by: Dariel Allen MD on 09/19/2023 5:19 PM PST Approved by: Dariel Allen MD on 09/19/2023 5:19 PM PST Station ID: [id number]
== END 2023-09-19 12:52 | disposition home or self-care (01) ==
LOC: DI 12:51
PROVIDERS: ATTEND Internal Medicine
DX: M25.561 Pain in right knee (principal); M23.41 Loose body in knee, right knee

== ENCOUNTER 2023-10-12 07:19 | Outpatient (CLI) | payer MEDICARE, OTHER ==
--- NOTE | 2023-10-12 10:36 | MRI Report ---
PROCEDURE: KNEE WO - RT INDICATIONS: KNEE PAIN TECHNIQUE: Noncontrast sagittal PD fast spin echo and T2 fast spin echo with fat saturation, sagittal 3-D gradie nt sequence with fat saturation; coronal T1 spin echo and PD fast spin echo with fat saturation, and axial PD fast spin echo with fat saturation through the knee. COMPARISON: X-ray right knee, 09/19/2023. FINDINGS: Image quality: Excellent. Menisci: There is complex tear of the body and posterior horn the medial meniscus. The medial meniscu s truncated. The lateral meniscus is intact. Cruciate ligaments: The anterior and posterior cruciate ligaments appear intact. Medial structures: Grade I sprain of medial collateral ligament, likely nonacute. The semimembranosu s tendon insertions and meniscocapsular junction appear intact. Visualized portions of the pes anser inus tendons appear normal. No abnormal bursal fluid. Lateral structures: The lateral collateral ligament, long and short heads of the biceps femoris tend on appear intact. The popliteus tendon appears normal. Iliotibial band appears normal. Anterior structures: The quadriceps and patellar tendons appear intact. Low-grade quadriceps tendin itis and patellar tendinitis. Patellar alignment is normal. No femoral trochlear dysplasia or ventra l trochlear prominence. No edema in the infrapatellar fat pad. Bones and cartilage: No bone marrow contusions or fractures. Chondromalacia patella. There is mild c artilage thinning and fibrillation in femorotibial compartments, more pronounced medially. Joint space: There is small knee joint effusion. No Martinez's cyst. Normal appearing synovial plicae are incidentally noted. Question a 3 mm intra-articular body adjacent to the lateral aspect of the tibial spine (series 6 image 18; series 11 image 16). IMPRESSION: 1. Complex medial meniscal tear. 2. Low-grade chronic MCL sprain. 3. Chondromalacia patella. 4. Small knee joint effusion. 5. Suspect a 3 mm intra-articular body adjacent to the lateral aspect of the tibial spine. Reviewed by: Poonam Lind MD on 10/12/2023 10:35 AM PST Approved by: Poonam Lind MD on 10/12/2023 10:35 AM PST Station ID: [id number]
== END 2023-10-12 07:20 | disposition home or self-care (01) ==
LOC: DI 07:19
PROVIDERS: ATTEND Internal Medicine
DX: S83.231A Complex tear of medial meniscus, current injury, right knee, initial encounter (principal); S83.411A Sprain of medial collateral ligament of right knee, initial encounter; M22.41 Chondromalacia patellae, right knee; M25.461 Effusion, right knee

== ENCOUNTER 2023-10-17 13:05 | Outpatient (CLI) | payer MEDICARE, OTHER ==
--- NOTE | 2023-10-19 11:37 | Mammography Report ---
BILATERAL DIGITAL SCREENING MAMMOGRAM 3D/2D: 10/17/2023 CLINICAL: Routine screening. Comparison is made to exams dated: 08/18/2022 mammogram, 06/23/2021 mammogram, and 04/26/2020 mammogra m - [facility]. There are scattered areas of fibroglandular density in both breasts (category b / 25%-50% glandular t issue). No significant masses, calcifications, or other findings are seen in either breast. There has been no significant interval change. IMPRESSION: NEGATIVE There is no mammographic evidence of malignancy. A 1 year screening mammogram is recommended. Based on the Tyrer Cuzick model (a risk assessment model) the patients lifetime risk is 6.8% and her 10 year risk is 0.0%. According to the ACR, ACS, and NCCN guidelines, an annual breast MRI exam pedro g with mammogram is recommended if the patients lifetime risk is 20% or greater. This exam was interpreted at Station ID: [id number]. NOTE: For mammograms, a report in lay terms will be sent to the patient. Approximately 15% of breast malignancies will not be visualized mammographically. In the management of a palpable breast mass, a negative mammogram must not discourage biopsy of a clinically suspicious lesion. Electronically Signed By: Josias ace/sonu:10/18/2023 09:38:03 letter sent: No_Letter ACR BI-RADS Category 1: Negative 3341F PARENCHYMAL PATTERN: (A) - The breast(s) demonstrate(s) scattered fibroglandular densities. BI-RADS CATEGORY: (1) - 1 Mammogram [id number] 1 year screening LATERALITY: (B)
== END 2023-10-17 13:06 | disposition home or self-care (01) ==
LOC: DI 13:05
DX: Z12.31 Encounter for screening mammogram for malignant neoplasm of breast (principal); R92.323 Mammographic fibroglandular density, bilateral breasts